=== PATIENT | female | born 2000 | race Caucasian/White ===

== ENCOUNTER 2024-12-15 14:25 | Emergency (ER) | payer MEDICAID, SELFPAY ==
[2024-12-15 14:46] VITALS: BP 135/81; PULSE 82; RESP 18; TEMP 36.8; O2SAT 98; BMI 20.9
--- NOTE | 2024-12-15 14:48 | ED.GENADULT ---
HPI - General Adult General Chief complaint: Upper Respiratory Symptoms Stated complaint: quest strep Time Seen by Provider: 12/15/24 16:04 Source: patient, RN notes reviewed and old records reviewed Mode of arrival: ambulatory Limitations: no limitations History of Present Illness ED Provider: Troy CHOUDHURY narrative: 24-year-old female presents for evaluation of sore throat, fevers and chills since yesterday. Denies any sick contacts. She was able to manage her secretions and swallow without any difficulty but has pain while doing so. She reports having had a virtual call with her primary doctor but was told they can not send any prescriptions and she had to get ?swabs for strep. ? Related Data Previous Rx's ?Medication ?Instructions ?Recorded amoxicillin 875 mg-potassium 1 tab PO Q12H #14 tabs 12/15/24 clavulanate 125 mg tablet Allergies Allergy/AdvReac Type Severity Reaction Status Date / Time shellfish derived [shellfish] Allergy Anaphylaxis Verified 12/15/24 14:48 Review of Systems Constitutional: Constitutional: Reports body ache(s), Reports chills and Reports fever(s) ENT: Reports sore throat and Reports throat swelling Cardiovascular: Cardiovascular: Denies chest pain and Denies dyspnea Respiratory: Respiratory: Denies cough and Denies dyspnea Gastrointestinal: Gastrointestinal: Denies abdominal pain, Denies nausea and Denies vomiting Allergic/Immunologic: Allergic/Immunologic: Reports throat swelling PMFSH Social History Social History Advance Directives: No Advance Directives Information Provided: No Do you have a plan to hurt others: No Plan Physical Exam ED Vital Signs: Vital Signs - 24 hr 12/15/24 14:46 Temperature 98.2 F Pulse Rate 82 Respiratory Rate 18 Blood Pressure 135/81 Pulse Oximetry 98 Oxygen Delivery Method Room Air BMI result Body Mass Index 20.9 Const General: healthy appearing, comfortable, no acute distress, alert and awake Nutritional Appearance: well nourished Orientation/consciousness: patient oriented x3 HENMT Other: Erythematous retropharynx with bilateral tonsillar hypertrophy. No fullness to the soft palate. No Brandin's angina. No deviation of the uvula. No anterior neck edema Head: Yes normocephalic and Yes atraumatic Eyes Eyelids: Yes eyelids normal Conjunctivae: conjunctivae normal Sclerae: sclerae normal Corneas: corneas normal Pupils: Equal, round and reactive pupils present EOM: EOMs intact bilaterally Neck Neck: Yes full ROM Resp Effort & Inspection: normal respiratory effort, able to speak in complete sentences and not labored Skin General skin exam: elasticity normal Neuro General: patient oriented x3 Cranial nerves: Yes Equal, round and reactive pupils present and Yes Bilaterally intact EOM present Cognition (Neuro): normal cognition Extrem Other: Moving all extremities well without any obvious deformities Course Course Course Narrative: RME, this is a rapid medical exam performed by Erick Simmons please refer to primary provider for complete H&P- 24-year-old female presents for evaluation of the sore throat since yesterday. Denies any known sick contacts. She also has subjective fevers and chills. Plan for viral testing and strep testing. On exam her oropharynx is erythematous with tonsillar hypertrophy, no clear exudates. Medical Decision Making Medical Decision Making [facility] Narrative: 24-year-old female presents for evaluation of a sore throat since yesterday. She has cough and subjective fevers and chills. Her swabs were negative. However given her significant inflammation exam we will give her a 1 week course of Augmentin as well as symptomatic care. She was encouraged to discontinue the antibiotics if she develops a rash in the event that she has mono Differential Diagnosis Differential Diagnoses: The differential diagnosis associated with the presentation includes Pharyngitis Upper respiratory infection Strep pharyngitis Mononucleosis Lab Data Labs: Lab Results 12/15/24 Range/Units 15:18 Influenza Type A (PCR) NEGATIVE (Negative) Influenza Type B (PCR) NEGATIVE (Negative) RSV RNA Qual (PCR) NEGATIVE (Negative) SARS-CoV-2 RNA (RT-PCR) NEGATIVE (Negative) S. pyogenes GrpA KIT Negative (Negative) Discharge Plan Discharge Clinical Impression: Pharyngitis Patient Disposition: Home, Self-Care Instructions: Pharyngitis (ED) Additional Instructions: You tested negative for influenza, COVID-19, RSV, and strep pharyngitis. Given the exudates and redness and swelling in her throat I still prescribed an antibiotic Take the antibiotic twice daily for 1 week You may use ibuprofen/Tylenol for fevers and sore throat Follow-up with your primary doctor, return for new or worsening symptoms Prescriptions: New amoxicillin-pot clavulanate 875-125 mg tablet 1 tab PO Q12H Qty: 14 0RF Stand Alone Forms: Work/School Release Print Language: Macedonian
[2024-12-15 15:37] LABS: IDNOW Serial# 58CA691E; Strep A Nucleic Acid Negative (Negative)
[2024-12-15 16:05] LABS: Influenza A PCR NEGATIVE (Negative); Influenza B PCR NEGATIVE (Negative); Resp Syncy Virus RNA Qual PCR NEGATIVE (Negative); SARS COV2 PCR INHOUSE NEGATIVE (Negative)
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
[2024-12-15 16:37] VITALS: BP 135/81; PULSE 82; RESP 18; TEMP 36.8; O2SAT 98
== END 2024-12-15 16:39 | disposition home or self-care (01) ==
PROVIDERS: Physician Assistant; Emergency Provider Emergency Medicine
DX: J02.9 Acute pharyngitis, unspecified (principal); Z03.818 Encounter for observation for suspected exposure to other biological agents ruled out
CPT/HCPCS: 0241U; 87651; 99282; 99283